=== PATIENT | male | born 1985 | race Caucasian/White ===

== ENCOUNTER 2016-08-23 12:18 | Emergency (ER) | payer SELFPAY ==
[~2016-08-23] VITALS: Ht 175.3 cm; Wt 86.0 kg
[~2016-08-23 12:18] MED LIST: ZOFR4TAB3 PO
[2016-08-23 12:24] VITALS: BP 114/76; PULSE 71; RESP 16; TEMP 98.6; O2SAT 98
--- NOTE | 2016-08-23 12:48 | PD ---
HPI . Patient complains of itchy throat, hot eyes and rhinorrhea since Wednesday Chief Complaint: Cold / Flu Symptoms Time Seen by Provider: 12:38 Travel History International Travel<30 days: No Contact w/Intl Traveler<30days: No Traveled to known affect area: No History of Present Illness HPI 30-year-old male with no significant past medical history here with complaints of itchy throat, hot eyes and rhinorrhea since Wednesday. Patient says that he has some itchy throat with some discomfort. He has no other symptoms. His significant other is also in the emergency department being seen for sore throat. He denies any fever, chills or cough. He denies any eye pain or loss of vision. PFSH Past Medical History Musculoskeletal: Yes (PFBS LEFT KNEE) Tetanus Vaccination: < 5 Years Influenza Vaccination: Yes Past Surgical History Surgical History: No Previous Surgery Oral Surgery: Yes (2007) Social History Alcohol Use: Yes (RARE) Tobacco Use: Yes (05/27) Substance Use: No Allergies-Medications (Allergen,Severity, Reaction): Coded Allergies: No Known Allergies (Verified , 08/23/16) Reported Meds & Prescriptions Reported Meds & Active Scripts Active Amoxicillin 500 Mg Cap 500 Mg PO BID 10 Days Review of Systems General / Constitutional: No: Fever Eyes: Positive: Other (hot eyes/itchy/watery), No: Visual changes HENT: Positive: Sore Throat, Rhinorrhea, No: Headaches Cardiovascular: No: Chest Pain or Discomfort Respiratory: No: Shortness of Breath Gastrointestinal: No: Abdominal Pain Genitourinary: No: Dysuria Musculoskeletal: No: Pain Skin: No Rash Neurologic: No: Weakness Psychiatric: No: Depression Endocrine: No: Polydipsia Hematologic/Lymphatic: No: Easy Bruising Physical Exam Narrative GENERAL: AAO x 3, no acute distress, Well-nourished, well-developed patient. SKIN: Warm and dry. No visible rashes or bruising. HEAD: Normocephalic and atraumatic. EYES: No scleral icterus. No injection or drainage. EOM intact, PERRLA. Normal eye exam ENT: No nasal drainage noted. Mucous membranes pink. Airway patent. Mild to moderate posterior pharynx erythema without exudates or tonsillar edema. TMs normal bilaterally NECK: Supple, trachea midline. No JVD. No lymphadenopathy CARDIOVASCULAR: Regular rate and rhythm without murmurs, gallops, or rubs. RESPIRATORY: Breath sounds equal bilaterally. No accessory muscle use. No rhonchi or rales. GASTROINTESTINAL: Abdomen soft, non-tender, nondistended. EXTREMITIES: No cyanosis or edema. BACK: Nontender without obvious deformity. No CVA tenderness. PSYCH: AAO x 3, normal affect. Data Data Last Documented VS Vital Signs Date Time Temp Pulse Resp B/P Pulse Ox O2 Delivery O2 Flow Rate FiO2 08/23/16 12:24 98.6 71 16 114/76 98 MDM Medical Decision Making Medical Screen Exam Complete: Yes Emergency Medical Condition: Yes Medical Record Reviewed: Yes Differential Diagnosis Allergic rhinitis, acute sinusitis, acute pharyngitis Narrative Course 30-year-old male with no significant past medical history here with complaints of itchy throat, hot eyes and rhinorrhea since Wednesday. Patient says that he has some itchy throat with some discomfort. He has no other symptoms. His significant other is also in the emergency department being seen for sore throat. He denies any fever, chills or cough. He denies any eye pain or loss of vision. Patient seen and examined. On physical exam there is no significant findings other than mild to moderate posterior pharynx erythema. His significant other is being seen for sore throat. With his current exam findings I will go ahead and treat with amoxicillin. He appears to have allergic rhinitis which is likely causing his hot/watery eyes as well as his rhinorrhea. I've advised him to use Claritin or Zyrtec for several days. He will need follow-up his primary care provider if symptoms persist. Patient verbalized understanding of instructions, questions were answered, and thanked me for their care. I advised them if their condition worsens, please return to the nearest emergency room for further care. Diagnosis Primary Impression: Acute pharyngitis Qualified Code: J02.9 - Acute pharyngitis, unspecified etiology Additional Impression: Allergic conjunctivitis Qualified Code: H10.13 - Allergic conjunctivitis, bilateral Patient Instructions: General Instructions Additional Instructions: Take medications as prescribed. Try salt water gargles. Do not share utensils, toothbrush, etc. If you develop difficulty breathing, please go to the nearest emergency room. Please return to emergency department if your symptoms return or worsen. Follow up with your primary care provider. Take medications as prescribed. You can try [id number] Claritin or Zyrtec for the next 7 days. Med/Other Pt SpecificInfo: Prescription(s) given Scripts Amoxicillin 500 Mg [id number] Mg PO BID 10 Days Ref 0 Prov:Yovani Ram MD 08/23/16 Disposition: 01 DISCHARGE HOME Condition: Stable Patricia Recio Aug 23, 2016 12:48
[2016-08-23] MEDS ORDERED: AMOX500C PO (12:49)
== END 2016-08-23 13:07 | disposition home or self-care (01) ==
LOC: PHED 12:18
DX: J02.9 Acute pharyngitis, unspecified (principal); H10.13 Acute atopic conjunctivitis, bilateral; J30.9 Allergic rhinitis, unspecified; Z72.0 Tobacco use; Z87.39 Personal history of other diseases of the musculoskeletal system and connective tissue
CPT/HCPCS: 99283

== ENCOUNTER 2016-12-09 12:58 | Emergency (ER) | payer SELFPAY ==
[~2016-12-09] VITALS: Ht 175.3 cm; Wt 88.5 kg
[~2016-12-09 12:58] MED LIST changes: +AMOX500C PO; -ZOFR4TAB3 PO
[2016-12-09 13:00] VITALS: BP 135/78; PULSE 80; RESP 20; TEMP 98.8; O2SAT 98
--- NOTE | 2016-12-09 13:26 | PD ---
HPI Chief Complaint: Pain: Acute or Chronic Time Seen by Provider: 13:26 Travel History International Travel<30 days: No Contact w/Intl Traveler<30days: No Traveled to known affect area: No History of Present Illness HPI 31-year-old male presents to the emergency brought in for evaluation of left knee pain 7 years. Patient reports no new injury. States that sometimes it flares up. She has not tried anything for the pain. Denies any fever or chills. Denies any difficulty ambulating. No others report. History Social History Alcohol Use: Yes (RARE) Tobacco Use: Yes (05/27 PPD) Allergies-Medications (Allergen,Severity, Reaction): Coded Allergies: No Known Allergies (Verified , 12/09/16) Reported Meds & Prescriptions Reported Meds & Active Scripts Active Review of Systems Except as stated in HPI: all other systems reviewed are Neg Physical Exam Narrative GENERAL: Well-nourished, well-developed well-nourished male patient, ambulatory no acute distress SKIN: Focused skin assessment warm/dry. HEAD: Normocephalic. EYES: No scleral icterus. No injection or drainage. NECK: Supple, trachea midline. No JVD or lymphadenopathy. CARDIOVASCULAR: Regular rate and rhythm without murmurs, gallops, or rubs. RESPIRATORY: Breath sounds equal bilaterally. No accessory muscle use. MUSCULOSKELETAL: No cyanosis, or edema. Patient has full flexion-extension of the left knee. No erythema or edema. No deformity. Patient is able to weight- bear. BACK: Nontender without obvious deformity. No CVA tenderness. Data Data Last Documented VS Vital Signs Date Time Temp Pulse Resp B/P Pulse Ox O2 Delivery O2 Flow Rate FiO2 12/09/16 13:00 98.8 80 20 135/78 98 Room Air [facility] Medical Screen Exam Complete: Yes Emergency Medical Condition: No Differential Diagnosis Left knee pain Narrative Course 31-year-old male presents to emergency department for evaluation left knee pain 7 years. Patient has no acute injury and no obvious abnormality. I have encouraged follow-up with a primary care provider, residential lawn specialist, and [id number] NSAIDs. At this time there are no urgent or emergent needs for medical intervention identified. A medical screening exam was performed: At the time of evaluation the presenting medical condition was determined not to be of an emergent nature. The patient was given the option of receiving additional care, but declined. Patient was given options for additional community resources from which to obtain care. The Patient Has Been advised to seek medical attention for their presenting complaint. The patient has been advised to return to the ER at any time if an emergent condition develops. Primary Impression: Knee pain, chronic Scripts No Active Prescriptions or Reported Meds Condition: Apple Dyer Dec 09, 2016 13:26
== END 2016-12-09 13:42 | disposition left against medical advice (07) ==
LOC: NEPK 12:58
DX: M25.562 Pain in left knee (principal); G89.29 Other chronic pain; F17.200 Nicotine dependence, unspecified, uncomplicated
CPT/HCPCS: 99281

== ENCOUNTER 2017-04-05 18:59 | Emergency (ER) | payer OTHER ==
[2017-04-05 19:14] VITALS: BP 128/61; PULSE 87; RESP 20; TEMP 98.1; O2SAT 98
[2017-04-05] MEDS ORDERED: PROPARACAINE HCL 0.5% OPHT SOLN 15 ML BTL LEFT EYE ONE (19:45)
[2017-04-05] MEDS ORDERED: IBUP1TAB7 PO (19:47)
--- NOTE | 2017-04-05 19:51 | PD ---
HPI Chief Complaint: Eye Problems/Injury Time Seen by Provider: 19:40 Travel History International Travel<30 days: No Contact w/Intl Traveler<30days: No Traveled to known affect area: No History of Present Illness HPI 31-year-old male here for evaluation of left eye redness, pain, tearing. He reports that he woke up this morning with left eye tearing and redness. He developed some pain in his eye over the past few hours. Pain is an aching pain is worse with his eyes open, with associated photophobia. He does work contacts but he does not sleep with them in his eyes. Denies any matting, itching, purulent discharge. He has no other complaints. Last tetanus vaccination unknown. PFSH Past Medical History Musculoskeletal: Yes (PFBS LEFT KNEE) Past Surgical History Oral Surgery: Yes (2007) Social History Alcohol Use: Yes (RARE) Tobacco Use: Yes (05/27) Substance Use: No Allergies-Medications (Allergen,Severity, Reaction): Coded Allergies: No Known Allergies (Verified Adverse Reaction, Unknown, 04/05/17) Reported Meds & Prescriptions Reported Meds & Active Scripts Active Tobrex Opth Oint (Tobramycin Sulfate) 0.3 % Oint 1 Applic LEFT EYE QID 7 Days Reported Ibuprofen 800 Mg Tab 1,000 Mg PO ONCE Review of Systems General / Constitutional: No: Fever, Chills Eyes: Positive: Photophobia, Redness, Pain, Tearing, No: Blurred Vision HENT: No: Sore Throat Respiratory: No: Cough Physical Exam Narrative GENERAL: Well-nourished male in no acute distress SKIN: Warm and dry. HEAD: Atraumatic. Normocephalic. EYES: Pupils equal and round reactive to light extraocular muscles are intact left eye conjunctival injection is present. Wood's lamp reveals a faint area of increased corneal uptake overlying the pupil at the 7 o'clock position. Negative Margarita's. Slit lamp confirms with no evidence of foreign body. ENT: No nasal bleeding or discharge. Mucous membranes pink and moist. NECK: Trachea midline. No JVD. CARDIOVASCULAR: Regular rate and rhythm. No murmur appreciated. RESPIRATORY: No accessory muscle use. Clear to auscultation. Breath sounds equal bilaterally. Data Data Last Documented VS Vital Signs Date Time Temp Pulse Resp B/P (MAP) Pulse Ox O2 Delivery O2 Flow Rate FiO2 11/13/17 19:14 98.1 87 20 128/61 (83) 98 Orders Orders Proparacaine 0.5% Opth Soln (Alcaine 0.5 (04/05/17 19:45) Tetanus/Diphtheria Tox Adult (Tetanus/Di (04/05/17 20:00) Tobramycin 0.3% Opth Oint (Tobrex 0.3% O (04/05/17 20:15) [facility] Medical Decision Making Medical Screen Exam Complete: Yes Emergency Medical Condition: Yes Medical Record Reviewed: Yes Differential Diagnosis Corneal abrasion, foreign body, corneal ulceration, iritis, conjunctivitis Narrative Course 31-year-old male here with 1 day history of left eye redness, pain. On examination he has conjunctival injection and a corneal abrasion at the 7 o' clock position not overlying the pupil. Tetanus status updated. He does wear contacts. The patient is advised to avoid contact use until cleared by ophthalmology. He is being discharged with TobraDex ophthalmic ointment. Diagnosis Primary Impression: Corneal abrasion of left eye due to contact lens Referrals: Ashley Ann MD Additional Instructions: Follow-up with an locomotive boilermaker such as Dr. Ann in 2-3 days. Medication as prescribed. No contact use until cleared by ophthalmology. Tylenol or Motrin for pain. Return for any emergent medical conditions. Med/Other Pt SpecificInfo: Prescription(s) given Scripts Tobramycin Opth Oint (Tobrex Opth Oint) 0.3 % Oint 1 APPLIC LEFT EYE QID for Infection for 7 Days, #1 TUBE 0 Refills Prov: Dillon Smallwood MD 04/05/17 Disposition: 01 DISCHARGE HOME Condition: Stable Jerry Rodas Apr 05, 2017 19:51
[2017-04-05] MEDS ORDERED: TETANUS/DIPHTHERIA TOXOID ADULT 0.5 ML VIAL IM ONE (20:00)
[2017-04-05] MEDS ORDERED: TOBR.3%O LEFT EYE (20:02)
[2017-04-05] MEDS ORDERED: TOBRAMYCIN SULFATE 0.3% OPTH OINT 3.5 GM TUBE LEFT EYE ONE (20:15)
[2017-04-08] MEDS ORDERED: ERYTOIN10 LEFT EYE (13:25)
[2017-04-08] MEDS ORDERED: AK-T0.3S LEFT EYE (13:25)
[2017-04-08] MEDS ORDERED: NEOM0.1S4 LEFT EYE (13:35)
[2017-04-08] MEDS ORDERED: PRED1SUS6 LEFT EYE (14:08)
== END 2017-04-05 20:28 | disposition home or self-care (01) ==
LOC: PHED 18:59 → PHEFT 20:28
DX: H18.822 Corneal disorder due to contact lens, left eye (principal); F17.210 Nicotine dependence, cigarettes, uncomplicated; Z23 Encounter for immunization
CPT/HCPCS: 90471; 90714